=== PATIENT | female | born 1980 | race Caucasian/White ===

== ENCOUNTER 2019-06-01 09:47 | Inpatient (IN) | payer SELFPAY ==
[2019-06-01] MEDS ORDERED: fentaNYL 100 MCG/2 ML INJ IV PRN (12:43)
[2019-06-01] MEDS ORDERED: TERBUTALINE 1 MG/1 ML INJ SUB-Q PRN (12:43)
[2019-06-01] MEDS ORDERED: ePHEDrine SULFATE 50 MG/1 ML INJ IV PRN (12:43)
--- NOTE | 2019-06-01 12:48 | History and Physical Report ---
History of Present Illness Date of examination: 06/01/19 Date of admission: 06/01/2019 Chief complaint: Contractions History of present illness: 38 year old presents to L&D in labor. Patient received care at [facility] and records are a vailable. LMP 08/23/18. EDC 06/06/19 based on 6 week, 1 day US. significant for the following: AMA, depression/anxiety (received Zoloft during ), anemia (supplemented with iron), gestational thrombocytopenia, GBS positive. History of 4 previous vaginal births. labs are as follows: B+, antibody screen negative, rubella immune, hepatitis B surface antigen negative, HIV negative, RPR nonreactive, chlamydia negative, gonorrhea negative, GBS positive, 1 hour sugar test 122, quad screen negative. Patient denies headache, visual disturbance, nausea or vomiting, abdominal or epigastric pain. Past History Past Medical History: other (depression and anxiety, gestational thrombocytopenia, gallstones, anemia requiring blood transfusion) Past Surgical History: cholecystectomy MEDICAL LABORATORY MANAGER History: denies: abnormal PAP smear, chlamydia, gonorrhea, hepatitis B, hepatitis C, herpes, HIV, syphilis, trichomonas Family/Genetic History: hypertension Social history: , lives with family, full code. denies: smoking, alcohol abuse, prescription drug abuse, IV drug use - Obstetrical History Expected Date of Delivery: 06/06/19 Actual Gestation: 39 Week(s) 2 Day(s) : 5 Para: 4 Hx # Term Pregnancies: 3 Number of Pregnancies: 1 Spontaneous Abortions: 0 Induced : 0 Number of Living Children: 4 Medications and Allergies Active Meds: Active Medications Ephedrine Sulfate (Ephedrine Sulfate) 10 mg IV Q2M PRN PRN Reason: Hypotension Fentanyl (Sublimaze) 100 mcg IV Q2H PRN PRN Reason: Labor Pain Oxytocin/Sodium Chloride (Pitocin/Ns 20 Unit/1000ml Drip) 20 units in 1,000 mls @ 125 mls/hr IV DIRECT CONCHITA Lactated Ringer's (Lactated Ringers) 1,000 mls @ 125 mls/hr IV DIRECT CONCHITA Ampicillin Sodium (Ampicillin/Ns 2 Gm/100 Ml) 2 gm in 100 mls @ 100 mls/hr IV ONCE ONE; Protocol Stop: 06/01/19 13:42 Ampicillin Sodium (Ampicillin/Ns 1 Gm/50 Ml) 1 gm in 50 mls @ 100 mls/hr IV Q4HR CONCHITA; Protocol Lidocaine (Xylocaine 2%) 20 ml INFILTRATI ONCE ONE Stop: 06/01/19 12:44 Terbutaline Sulfate (Brethine) 0.25 mg SUB-Q ONCE PRN PRN Reason: Hyperstimulation/Hypertonicity Review of Systems All systems: negative (contractions) - Vital Signs Vital signs: Vital Signs Pulse Pulse Ox 81 100 06/01/19 10:08 06/01/19 10:08 Temp Pulse Resp BP Pulse Ox 98.2 F 83 18 154/90 99 06/01/19 10:13 06/01/19 12:43 06/01/19 10:13 06/01/19 12:39 06/01/19 12:43 - Physical Exam Cardiovascular: Regular rate, Normal S1, Normal S2, No murmurs Lungs: Positive: Clear to auscultation Abdomen: Positive: normal appearance, soft. Negative: distention, tenderness, guarding, rigidity Genitourinary (Female): Positive: normal external genitalia, normal perenium. Negative: perineal/vulvar lesions (no lesions seen on careful exam with bright light upon admission) Vagina: Positive: normal moisture Uterus: Positive: enlarged Anus/Rectum: Positive: normal perianal skin Extremities: Positive: normal. Negative: tenderness, edema - Obstetrical FHR: category 2 Uterine Contraction Monitor Mode: External Cervical Dilatation: 3.5 Cervical Effacement Percentage: 50 station: -2 Uterine Contraction Pattern: Regular Uterine Contraction Intensity: Moderate Results All other labs normal. Assessment and Plan A: at 39 2/7 weeks gestation. Labor. Elevated blood pressure. GBS positive. P: Admit. Preeclamptic labs, serial BPs. Continuous EFM. GBS prophylaxis.
[2019-06-01] MEDS ORDERED: hydrALAZINE 20 MG/1 ML INJ IV PRN (12:49)
[2019-06-01] MEDS ORDERED: AMPICILLIN/NS 2 GM/100 ML 2 GM/100 ML BAG IV ONE (13:00)
[2019-06-01] MEDS ORDERED: OXYTOCIN 20 UNIT/1000ML DRIP 20 UNITS/1,000 ML BAG IV SCH (13:00)
[2019-06-01] MEDS ORDERED: LIDOCAINE (2%) 20 MG/1 ML VIAL 20 ML MDV INFILTRATI ONE (14:00)
[2019-06-01 14:30] LABS: Hematocrit 39.4 % (30.3-42.9); Hemoglobin 12.9 gm/dl (10.1-14.3); Mean Corpuscular HGB Conc 33 % (30-34); Mean Corpuscular Volume 81 fl (79-97); Red Blood Count 4.84 M/mm3 (3.65-5.03); Red Cell Distribution Width 19.3 % (13.2-15.2)
[2019-06-01 14:39] LABS: Uric Acid 5.8 mg/dL (3.5-7.6)
[2019-06-01 14:41] LABS: Alanine Aminotransferase 23 units/L (7-56); Albumin 3.6 g/dL (3.9-5); BUN/Creatinine Ratio 18; Blood Urea Nitrogen 9 mg/dL (7-17); Calcium 9.2 mg/dL (8.4-10.2); Hemolysis Index 0
[2019-06-01] MEDS: LACTATED RINGERS 1,000 ML IV SCH (14:51)
[2019-06-01 15:41] LABS: Platelet Count 77 K/mm3 (140-440)
--- NOTE | 2019-06-01 16:22 | Event Note ---
Date: 06/01/19 Platelet count resulted: 77,000. LFTs elevated. Patient's BPs labile: mostly 130s/70s to 150s/90s. Had one BP in severe range. Recheck a short time later was 154/90. Patient denies headache, chest pain, shortness of breath, visual disturbance, nausea or vomiting, abdominal or epigastric pain. Reflexes brisk. Orders for Pitocin augmentation of labor and mag sulfate have been put in and nurse is starting them now. Consulted with Dr. Alexandra re: patient and informed him of all BPs, lab results, and exam and discussed interventions with him. Disc ussed plan of care with patient and significant other.
[2019-06-01] MEDS ORDERED: MAGNESIUM SULFATE 4 GM/100 ML BAG IV ONE (16:41)
[2019-06-01] MEDS ORDERED: AMPICILLIN/NS 1 GM/50 ML 1 GM/50 ML BAG IV SCH (17:00)
[2019-06-01] MEDS ORDERED: MAGNESIUM SULFATE 40GM/1000ML 40 GM/1,000 ML BAG IV SCH (17:00)
[2019-06-01] MEDS: OXYTOCIN DRIP 30 UNITS/500 ML BAG IV SCH ×2 (17:25→19:46)
--- NOTE | 2019-06-01 20:41 | Event Note ---
Date: 06/01/19 SVE /-1.
[2019-06-01] MEDS ORDERED: LANOLIN/ZINC/DIMETHICONE (LANSINOH) 7 GM TP PRN (21:57)
[2019-06-01] MEDS ORDERED: WITCH HAZEL/ GLYCERIN PAD TP PRN (21:57)
--- NOTE | 2019-06-01 22:07 | Procedure Note ---
OB Delivery Note - Delivery Date of Delivery: 06/01/19 Surgeon: SARAI SALEH Estimated blood loss: other (350 cc) - Vaginal Delivery presentation: vertex Delivery position: OA Intrapartum events: preeclampsia Delivery augmentation: rupture of membranes, pitocin Delivery monitor: external FHT, external uterine Route of delivery: Delivery placenta: spontaneous Delivery cord: nuchal cord, 3 umbilical vessels Episiotomy: none Delivery laceration: none Anesthesia: none Delivery comments: Spontaneous vaginal delivery at 21:30 of liveborn female infant weighing 6 lb. 12.7 ounces over intact perineum with apgars of 8/8. Loose nuchal cord times 1, manually reduced before delivery of shoulders. Baby placed skin to skin with mom immediately after . Baby dried and stimulated. Spontaneous cry and respirations. 3 vessel cord double clamped and cut and baby taken to radiant warmer for further suctioning and evaluation. Spontaneous delivery of intact placenta and membranes with possible small accessory lobe at 21:40. EBL 350 cc. Pitocin to IV fluids after delivery of placenta. Fundus firm and midline. Vaginal sweep negative. No lacerations noted. Sponge count correct. Mother and baby stable.
[2019-06-01] MEDS ORDERED: miSOPROStol 200 MCG TAB ONE (22:20)
[2019-06-01] MEDS ORDERED: miSOPROStol 200 MCG TAB PR ONE (22:45)
[2019-06-01 23:07] LABS: Bilirubin,Urine NEG (Negative); Blood,Urine LG (Negative); Color,Urine Yellow (Yellow); Hyaline Casts,Urine 4 /LPF; Mucus,Urine FEW /HPF; Urobilinogen,Urine < 2.0 mg/dL (<2.0)
[2019-06-01 23:09] LABS: RBC,Urine > 182.0 /HPF (0.0-6.0)
[2019-06-01 23:12] LABS: Protein/Creatinine Ratio,Urine 0.89
--- NOTE | 2019-06-01 23:44 | Ultrasound Report ---
Pelvic ultrasound limited INDICATION: Pelvic pain with recent FINDINGS: The endometrial complex is thickened measuring 4 cm in thickness. The endometrial complex i s heterogeneous but no significant internal Doppler flow is identified. IMPRESSION: Large amount of clot noted within the endometrial canal measuring 4 cm in greatest thickn ess. No significant internal Doppler flow to definitely suggest retained products of conception at th is time. Signer Name: Khai Yoon MD Signed: 06/01/2019 11:40 PM Workstation Name: [id number]
[2019-06-02 00:46] LABS: Amphetamine Screen,Urine PRESUMPTIVE NEGATIVE; Benzodiazepines Screen,Urine PRESUMPTIVE NEGATIVE; Cannabinoid Screen,Urine PRESUMPTIVE NEGATIVE; Cocaine Screen,Urine PRESUMPTIVE NEGATIVE; Methadone Screen,Urine PRESUMPTIVE NEGATIVE; Opiate Screen,Urine PRESUMPTIVE NEGATIVE
[2019-06-02] MEDS: ACETAMINOPHEN 325 MG TAB PO PRN ×2 (05:03→22:52)
[2019-06-02] MEDS ORDERED: MAGNESIUM SULFATE 40GM/1000ML 40 GM/1,000 ML BAG IV SCH (06:00)
[2019-06-02 09:38] LABS: Hematocrit 33.3 % (30.3-42.9); Hemoglobin 10.9 gm/dl (10.1-14.3)
[2019-06-02 11:59] LABS: Alanine Aminotransferase 27 units/L (7-56); Albumin 2.7 g/dL (3.9-5); BUN/Creatinine Ratio 13; Blood Urea Nitrogen 5 mg/dL (7-17); Calcium 6.2 mg/dL (8.4-10.2); Hemolysis Index 3
--- NOTE | 2019-06-02 12:44 | Progress Note ---
Assessment and Plan A: day 1 S/P spontaneous vaginal delivery. Preeclampsia, currently receiving magnesium sulfate. Anemia. P: Consulted with Dr. Keating re: this patient. Will continue magnesium sulfate until 11 pm tonight. Will continue to monitor BPs. Supplement iron. SCDs and Chaney catheter. Subjective - Subjective Date of service: 06/02/19 Principal diagnosis: day 1 S/P . Preeclampsia. Interval history: day 1 S/P ; preeclampsia, currently on magnesium sulfate at 1 gram/hour. Patient denies TRIVEDI, visual disturbance, nausea or vomiting, abdominal or epigastric pain. Patient reports drowsiness. Patient reports lochia is moderate to light. She denies large clots. She has Chaney catheter in place. Patient reports: appetite normal, pain well controlled, flatus, no nauseated [place]: doing well Objective - Vital Signs Latest vital signs: Vital Signs Temp Pulse Resp BP BP Pulse Ox 06/02/19 12:37 97 H 100 06/02/19 12:32 91 H 137/92 100 06/02/19 12:27 91 H 100 06/02/19 12:22 99 H 100 06/02/19 12:17 85 100 06/02/19 12:12 89 100 06/02/19 12:07 87 100 06/02/19 12:02 92 H 134/88 99 06/02/19 11:57 103 H 99 06/02/19 11:52 88 99 06/02/19 11:47 87 99 06/02/19 11:42 87 99 06/02/19 11:37 87 99 06/02/19 11:32 88 125/85 99 06/02/19 11:27 93 H 99 06/02/19 11:22 89 99 06/02/19 11:17 90 100 06/02/19 11:12 91 H 99 06/02/19 11:07 93 H 99 06/02/19 11:02 97 H 130/81 100 06/02/19 10:57 90 100 06/02/19 10:52 88 99 06/02/19 10:47 87 100 06/02/19 10:42 83 99 06/02/19 10:37 95 H 99 06/02/19 10:32 94 H 123/78 100 06/02/19 10:27 88 98 06/02/19 10:22 84 98 06/02/19 10:17 85 98 06/02/19 10:12 85 100 06/02/19 10:07 98 H 100 06/02/19 10:02 84 123/83 98 06/02/19 09:57 84 99 06/02/19 09:52 87 99 06/02/19 09:47 94 H 99 06/02/19 09:42 87 100 06/02/19 09:37 87 99 06/02/19 09:32 97 H 125/77 99 06/02/19 09:27 95 H 100 06/02/19 09:22 99 H 99 06/02/19 09:17 101 H 99 06/02/19 09:12 95 H 99 06/02/19 09:07 94 H 99 06/02/19 09:02 88 119/84 98 06/02/19 08:57 89 99 06/02/19 08:52 89 98 06/02/19 08:47 84 98 06/02/19 08:42 103 H 98 06/02/19 08:37 105 H 99 06/02/19 08:32 91 H 138/89 99 06/02/19 08:27 105 H 99 06/02/19 08:22 103 H 99 06/02/19 08:17 92 H 99 06/02/19 08:12 91 H 99 06/02/19 08:07 98 H 100 06/02/19 08:02 114 H 100 06/02/19 08:01 101 H 135/95 06/02/19 07:57 105 H 100 06/02/19 07:52 113 H 100 06/02/19 07:47 121 H 100 06/02/19 07:43 93 H 139/91 06/02/19 07:42 84 99 06/02/19 07:37 87 99 06/02/19 07:32 94 H 135/97 100 06/02/19 07:27 86 100 06/02/19 07:22 86 100 06/02/19 07:17 105 H 99 06/02/19 07:12 98 H 100 06/02/19 07:07 95 H 100 06/02/19 07:02 93 H 130/89 99 06/02/19 06:57 94 H 98 06/02/19 06:52 88 98 06/02/19 06:47 93 H 99 06/02/19 06:42 91 H 98 06/02/19 06:37 84 99 06/02/19 06:32 91 H 122/80 99 06/02/19 06:27 93 H 99 06/02/19 06:22 94 H 99 06/02/19 06:17 88 99 06/02/19 06:12 91 H 99 06/02/19 06:07 92 H 99 06/02/19 06:03 18 06/02/19 06:02 93 H 124/88 100 06/02/19 05:57 92 H 100 06/02/19 05:52 90 100 06/02/19 05:47 95 H 100 06/02/19 05:42 93 H 100 06/02/19 05:37 96 H 100 06/02/19 05:32 89 138/89 99 06/02/19 05:27 95 H 99 06/02/19 05:22 95 H 99 06/02/19 05:17 94 H 100 06/02/19 05:12 103 H 100 06/02/19 05:07 108 H 99 06/02/19 05:03 18 06/02/19 05:02 97 H 121/84 100 06/02/19 04:57 102 H 99 06/02/19 04:52 99 H 99 06/02/19 04:47 101 H 99 06/02/19 04:42 102 H 99 06/02/19 04:37 104 H 99 06/02/19 04:32 109 H 121/80 100 06/02/19 04:27 103 H 98 06/02/19 04:22 104 H 98 06/02/19 04:17 100 H 99 06/02/19 04:12 101 H 98 06/02/19 04:07 106 H 98 06/02/19 04:02 96 H 127/80 99 06/02/19 03:57 102 H 98 06/02/19 03:52 98 H 98 06/02/19 03:47 100 H 98 06/02/19 03:42 98 H 97 06/02/19 03:37 96 H 97 06/02/19 03:32 93 H 130/88 98 06/02/19 03:27 97 H 98 06/02/19 03:22 96 H 98 06/02/19 03:17 98 H 98 06/02/19 03:12 96 H 98 06/02/19 03:07 93 H 98 06/02/19 03:02 94 H 139/91 98 06/02/19 02:57 96 H 98 06/02/19 02:52 94 H 98 06/02/19 02:47 101 H 99 06/02/19 02:42 98 H 99 06/02/19 02:37 102 H 99 06/02/19 02:32 104 H 120/82 98 06/02/19 02:27 101 H 98 06/02/19 02:22 97 H 99 06/02/19 02:17 99 H 99 06/02/19 02:12 104 H 99 06/02/19 02:07 100 H 99 06/02/19 02:02 107 H 132/88 99 06/02/19 01:57 95 H 98 06/02/19 01:52 94 H 98 06/02/19 01:47 95 H 98 06/02/19 01:42 94 H 98 06/02/19 01:37 94 H 98 06/02/19 01:32 96 H 133/73 98 06/02/19 01:27 94 H 98 06/02/19 01:22 98 H 99 06/02/19 01:17 97 H 99 06/02/19 01:12 96 H 99 06/02/19 01:07 100 H 99 06/02/19 01:02 97 H 145/96 99 06/02/19 00:57 99 H 99 06/02/19 00:52 99 H 100 06/02/19 00:47 107 H 99 06/02/19 00:42 101 H 99 06/02/19 00:37 104 H 99 06/02/19 00:32 99 H 128/90 99 06/02/19 00:27 101 H 99 06/02/19 00:22 100 H 99 06/02/19 00:17 101 H 99 06/02/19 00:12 102 H 99 06/02/19 00:07 99 H 99 06/02/19 00:02 98 H 118/80 99 06/01/19 23:57 99 H 99 06/01/19 23:52 100 H 99 06/01/19 23:47 102 H 99 06/01/19 23:42 101 H 99 06/01/19 23:37 105 H 98 06/01/19 23:32 105 H 123/84 99 06/01/19 23:27 109 H 99 06/01/19 23:22 111 H 100 06/01/19 23:17 109 H 99 06/01/19 23:12 112 H 99 06/01/19 23:07 104 H 100 06/01/19 23:02 106 H 100 06/01/19 22:57 105 H 153/100 99 06/01/19 22:53 110 H 167/101 06/01/19 22:52 114 H 99 06/01/19 22:46 120 H 99 06/01/19 22:41 121 H 99 06/01/19 22:36 97 H 99 06/01/19 22:31 99 H 99 06/01/19 22:26 98 H 99 06/01/19 22:21 108 H 99 06/01/19 22:16 101 H 100 06/01/19 22:11 96 H 99 06/01/19 22:06 96 H 99 06/01/19 22:01 96 H 100 06/01/19 21:56 105 H 100 06/01/19 21:53 110 H 118/83 06/01/19 21:51 116 H 98 06/01/19 21:48 111 H 122/84 06/01/19 21:46 120 H 99 06/01/19 21:41 117 H 99 06/01/19 21:36 118 H 98 06/01/19 21:31 124 H 100 06/01/19 21:29 81 87 06/01/19 21:26 131 H 99 06/01/19 21:21 125 H 98 06/01/19 21:20 130 H 173/107 06/01/19 21:16 128 H 98 06/01/19 21:11 118 H 99 06/01/19 21:06 105 H 99 06/01/19 21:01 100 H 99 06/01/19 20:56 101 H 98 06/01/19 20:51 107 H 98 06/01/19 20:46 92 H 98 06/01/19 20:41 93 H 97 06/01/19 20:36 105 H 98 06/01/19 20:31 115 H 99 06/01/19 20:26 106 H 99 11/29/19 20:21 108 H 98 06/01/19 20:16 126 H 97 06/01/19 20:11 116 H 98 06/01/19 20:06 98 H 100 06/01/19 20:01 95 H 98 06/01/19 19:56 89 97 06/01/19 19:55 95 H 118/78 06/01/19 19:51 89 98 06/01/19 19:46 94 H 99 06/01/19 19:41 111 H 98 06/01/19 19:36 96 H 100 06/01/19 19:31 106 H 99 06/01/19 19:29 98.7 F 95 H 18 170/98 99 06/01/19 19:26 91 H 99 06/01/19 19:22 96 H 157/104 06/01/19 19:21 89 170/98 99 06/01/19 18:55 85 140/83 06/01/19 17:54 71 128/82 06/01/19 16:53 77 121/75 06/01/19 16:24 77 114/75 06/01/19 15:53 61 138/78 06/01/19 15:34 70 140/80 06/01/19 13:48 66 102/62 Intake and Output 06/01/19 06/02/19 06/02/19 23:59 07:59 15:59 Intake Total 4.7 Output Total 350 Balance -345.3 Intake: IV 4.7 PITOCin/NS 30 UNIT/500ML 4.7 30 units In 500 ml @ Per Protocol IV TITR CONCHITA Rx#: [id number] Output: Urine 350 Indwelling Catheter 300 Uretheral (Chaney) 50 Other: Total, Output Amount 100 Estimated Blood Loss 350 - Exam Cardiovascular: Present: Regular rate, Normal S1, Normal S2, No murmurs Lungs: Present: Clear to auscultation Abdomen: Present: normal appearance, soft, normal bowel sounds. Absent: distention, tenderness, guarding, rigidity Uterus: Present: normal, firm, fundal height below umbilicus. Absent: bogginess, tenderness Extremities: Present: normal, edema (mild pedal edema bilaterally). Absent: te nderness - Labs Labs: Abnormal lab results 06/01/19 06/01/19 06/01/19 Range/Units 13:43 13:43 13:43 MCH 27 L (28-32) pg RDW 19.3 H (13.2-15.2) % Plt Count 77 L (140-440) K/mm3 Sodium 136 L (137-145) mmol/L Carbon Dioxide 17 L (22-30) mmol/L BUN (7-17) mg/dL Creatinine 0.5 L (0.7-1.2) mg/dL Glucose (65-100) mg/dL Calcium (8.4-10.2) mg/dL Magnesium (1.7-2.3) mg/dL Alkaline Phosphatase 265 H (35-129) units/L Lactate Dehydrogenase 185 H (91-180) units/L Total Protein (6.3-8.2) g/dL Albumin 3.6 L (3.9-5) g/dL Urine WBC (Auto) (0.0-6.0) /HPF Urine Creatinine (0.1-20.0) mg/dL Urine Total Protein (5-11.8) mg/dL 06/01/19 06/01/19 06/01/19 Range/Units 22:27 22:45 22:45 MCH (28-32) pg RDW (13.2-15.2) % Plt Count (140-440) K/mm3 Sodium (137-145) mmol/L Carbon Dioxide (22-30) mmol/L BUN (7-17) mg/dL Creatinine (0.7-1.2) mg/dL Glucose (65-100) mg/dL Calcium (8.4-10.2) mg/dL Magnesium 5.70 H (1.7-2.3) mg/dL Alkaline Phosphatase (35-129) units/L Lactate Dehydrogenase (91-180) units/L Total Protein (6.3-8.2) g/dL Albumin (3.9-5) g/dL Urine WBC (Auto) 44.0 H (0.0-6.0) /HPF Urine Creatinine 46.0 H (0.1-20.0) mg/dL Urine Total Protein 41 H (5-11.8) mg/dL 06/02/19 06/02/19 06/02/19 Range/Units 05:09 11:11 11:11 MCH (28-32) pg RDW (13.2-15.2) % Plt Count 75 L (140-440) K/mm3 Sodium (137-145) mmol/L Carbon Dioxide (22-30) mmol/L BUN (7-17) mg/dL Creatinine (0.7-1.2) mg/dL Glucose (65-100) mg/dL Calcium (8.4-10.2) mg/dL Magnesium 6.90 H 5.70 H (1.7-2.3) mg/dL Alkaline Phosphatase (35-129) units/L Lactate Dehydrogenase (91-180) units/L Total Protein (6.3-8.2) g/dL Albumin (3.9-5) g/dL Urine WBC (Auto) (0.0-6.0) /HPF Urine Creatinine (0.1-20.0) mg/dL Urine Total Protein (5-11.8) mg/dL 06/02/19 Range/Units 11:11 MCH (28-32) pg RDW (13.2-15.2) % Plt Count (140-440) K/mm3 Sodium 132 L (137-145) mmol/L Carbon Dioxide 17 L (22-30) mmol/L BUN 5 L (7-17) mg/dL Creatinine 0.4 L (0.7-1.2) mg/dL Glucose 116 H (65-100) mg/dL Calcium 6.2 L D (8.4-10.2) mg/dL Magnesium (1.7-2.3) mg/dL Alkaline Phosphatase 190 H (35-129) units/L Lactate Dehydrogenase (91-180) units/L Total Protein 5.6 L (6.3-8.2) g/dL Albumin 2.7 L (3.9-5) g/dL Urine WBC (Auto) (0.0-6.0) /HPF Urine Creatinine (0.1-20.0) mg/dL Urine Total Protein (5-11.8) mg/dL
[2019-06-03] MEDS: LACTATED RINGERS 1,000 ML IV SCH (01:50)
[2019-06-03] MEDS: ACETAMINOPHEN 325 MG TAB PO PRN ×2 (12:19→22:43)
[2019-06-03] MEDS: FERROUS SULFATE 325 MG TAB PO SCH (12:19)
--- NOTE | 2019-06-03 17:24 | Progress Note ---
Assessment and Plan A: day 2 S/P . Preeclampsia. Thrombocytopenia. Anemia secondary to and blood loss. P: Supplement with oral iron. Continue to monitor BPs. Subjective - Subjective Date of service: 06/03/19 Principal diagnosis: day 2 S/P . Preeclampsia. Interval history: day 2 S/P ; preeclampsia. Patient denies TRIVEDI, visual disturbance, dizziness, nausea or vomiting, abdominal or epigastric pain. Patient denies cough, shortness of breath, chest pain, or leg pain. Patient reports lochia is moderate to light. She denies large clots. She is voiding without difficulty, passing gas, tolerating a regular diet, and ambulating well. Patient reports: appetite normal, voiding normally, pain well controlled, flatus, bowel movement, ambulating normally, no dizzy ambulation, no nauseated [place]: doing well Objective - Vital Signs Latest vital signs: Vital Signs Temp Pulse Resp BP Pulse Ox 06/03/19 15:20 98.8 F 77 20 118/74 98 06/03/19 07:45 98.4 F 67 16 114/66 97 06/03/19 01:25 98.7 F 69 18 107/73 98 06/02/19 22:24 99.1 F 78 142/80 94 06/02/19 21:49 80 100 06/02/19 21:44 77 98 06/02/19 21:39 80 99 06/02/19 21:33 90 100 06/02/19 21:29 81 100 06/02/19 21:24 81 99 06/02/19 21:19 77 99 06/02/19 21:16 78 137/92 06/02/19 21:14 78 99 06/02/19 21:09 86 100 06/02/19 21:04 77 99 06/02/19 20:59 89 99 06/02/19 20:53 92 H 99 06/02/19 20:49 77 99 06/02/19 20:44 77 99 06/02/19 20:39 78 98 06/02/19 20:34 79 99 06/02/19 20:29 79 100 06/02/19 20:24 80 99 06/02/19 20:19 81 100 06/02/19 20:16 81 130/92 06/02/19 20:14 108 H 99 06/02/19 20:09 78 99 06/02/19 20:04 84 100 06/02/19 19:59 81 100 06/02/19 19:54 106 H 100 06/02/19 19:49 78 99 06/02/19 19:43 79 99 06/02/19 19:39 80 99 06/02/19 19:34 80 99 06/02/19 19:29 82 99 06/02/19 19:24 92 H 98 06/02/19 19:19 82 97 06/02/19 19:16 83 124/84 06/02/19 19:14 87 99 06/02/19 19:09 82 98 06/02/19 19:04 84 99 06/02/19 18:59 82 99 06/02/19 18:54 81 100 06/02/19 18:48 79 99 06/02/19 18:44 87 99 06/02/19 18:39 85 100 06/02/19 18:34 84 99 06/02/19 18:28 88 100 06/02/19 18:24 115 H 100 06/02/19 18:19 81 100 06/02/19 18:16 89 136/87 06/02/19 18:14 89 99 06/02/19 18:09 100 H 99 06/02/19 18:04 84 99 06/02/19 17:58 83 99 06/02/19 17:53 89 99 06/02/19 17:49 85 99 06/02/19 17:44 98 H 99 06/02/19 17:39 89 99 06/02/19 17:33 89 99 06/02/19 17:28 87 98 06/02/19 17:24 83 99 Intake and Output 06/03/19 06/03/19 06/03/19 07:59 15:59 23:59 Intake Total 480 Output Total 1200 650 Balance -1200 -170 Intake: Oral 480 Output: Urine 1200 650 Indwelling Catheter 900 Void 300 650 Other: Total, Intake Amount 240 Total, Output Amount 300 400 # Voids Indwelling Catheter 1 Void 1 - Exam Cardiovascular: Present: Regular rate, Normal S1, Normal S2, No murmurs Lungs: Present: Clear to auscultation Abdomen: Present: normal appearance, soft, normal bowel sounds. Absent: distention, tenderness, guarding, rigidity Uterus: Present: normal, firm, fundal height below umbilicus. Absent: bogginess, tenderness Extremities: Present: normal. Absent: tenderness, edema - Labs Labs: Abnormal lab results 06/02/19 Range/Units 17:36 Magnesium 4.80 H (1.7-2.3) mg/dL
[2019-06-04] MEDS: FERROUS SULFATE 325 MG TAB PO SCH (08:42)
--- NOTE | 2019-06-04 11:07 | Progress Note ---
Assessment and Plan - Patient Problems (1) Status post normal vaginal delivery Current Visit: Yes Status: Acute Plan to address problem: PPD 3 - stable Discharge to home today Follow up at [facility] as needed or in 1 week for blood pre ssure check (2) Thrombocytopenia Current Visit: Yes Status: Acute Plan to address problem: Asymptomatic (3) Pre-eclampsia Current Visit: Yes Status: Acute Qualifiers: Trimester: third trimester Qualified Code(s): O14.93 - Unspecified pre- eclampsia, third trimester Plan to address problem: Asymptomatic Completed MgSO4 therapy Not currently on any antihypertensive BPs stable (132/77, 131/74, 120/68, 123/85) Subjective - Subjective Date of service: 06/04/19 Principal diagnosis: PPD #3; s/p Interval history: see H&P, Event Notes, OB Delivery 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 Progress Notes Patient reports: appetite normal, voiding normally, pain well controlled, ambulating normally, other (denies headache, visual disturbances or RUQ pain), no dizzy ambulation [place]: doing well, other (breast and bottle feeding) Objective - Vital Signs Latest vital signs: Vital Signs Temp Pulse Resp BP BP Pulse Ox 06/04/19 08:22 98.4 F 83 18 123/85 98 06/04/19 04:00 98.7 F 71 16 120/68 06/03/19 23:30 98.7 F 69 16 131/74 06/03/19 20:00 98.7 F 76 16 132/77 06/03/19 15:20 98.8 F 77 20 118/74 98 Intake and Output 06/03/19 06/04/19 06/04/19 23:59 07:59 15:59 Intake Total 200 Balance 200 Intake: Oral 200 Other: Total, Intake Amount 200 # Voids Void 1 1 - Exam Cardiovascular: Present: Regular rate Lungs: Present: Clear to auscultation Abdomen: Present: normal appearance, soft Vulva: both: normal Uterus: Present: normal, firm, fundal height below umbilicus Extremities: Present: normal Comments: scant lochia
--- NOTE | 2019-06-04 11:16 | Discharge Summary ---
Providers - Providers Date of Admission: 06/01/19 12:54 Date of discharge: 06/04/19 Attending physician: TAMMY MEJIA MD Primary care physician: TAMMY MEJIA MD Hospitalization Reason for admission: active labor, IUP at term Delivery: Episiotomy: none Laceration: none Other procedures: none complications: other (pre-eclampsia) Discharge diagnosis: IUP at term delivered [employer] baby: female Hospital course: Complicated by pre-eclampsia. s/p magnesium sulfate therapy Condition at discharge: Stable Disposition: DC-01 TO HOME OR SELFCARE - Discharge Diagnoses (1) Status post normal vaginal delivery Status: Acute (2) Thrombocytopenia Status: Acute Comment: Asymptomatic Platelet count 75 (3) Pre-eclampsia Status: Acute Qualifiers: Trimester: third trimester Qualified Code(s): O14.93 - Unspecified pre- eclampsia, third trimester Comment: Asymptomatic - BPs stable s/p Magnesium sulfate therapy Plan - Provider Discharge Summary Activity: routine, no sex for 6 weeks, no heavy lifting 4 weeks, no strenuous exercise Diet: routine Instructions: routine Additional instructions: [] Smoking cessation referral if applicable(refer to patient education folder for contact #) [] Refer to [employer] Booklet Call your doctor immediately for: * Fever > 100.5 * Heavy vaginal bleeding ( >1 pad per hour) * Severe persistent headache * Shortness of breath * Reddened, hot, painful area to leg or breast * Drainage or odor from incision. * Keep incision clean and dry at all times and follow doctor's instructions regarding bathing/showering - Follow up plan Follow up: TAMMY MEJIA MD [Primary Care Provider] - 7 Days (Follow up at [facility] as needed or in 1 week for blood pressure check)
[2019-06-04 17:03] VITALS: BP 135/86
== END 2019-06-04 16:25 | disposition home or self-care (01) | DRG 806 ==
LOC: TRG 09:47 → LD 12:54 → OB 06-02 22:43
PROVIDERS: ADMIT Obstetrics & Gynecology; ATTEND Obstetrics & Gynecology
PROC: 10E0XZZ Delivery of Products of Conception, External Approach (ICD-10-PCS; principal; 2019-06-01)
DX: O14.94 Unspecified pre-eclampsia, complicating childbirth (principal); D62 Acute posthemorrhagic anemia; Z37.0 Single live birth; O99.824 Streptococcus B carrier state complicating childbirth; Z3A.39 39 weeks gestation of pregnancy; F41.9 Anxiety disorder, unspecified; F32.9 Major depressive disorder, single episode, unspecified; Z90.49 Acquired absence of other specified parts of digestive tract; O76 Abnormality in fetal heart rate and rhythm complicating labor and delivery; D69.6 Thrombocytopenia, unspecified; O72.3 Postpartum coagulation defects; O90.81 Anemia of the puerperium; O69.81X0 Labor and delivery complicated by cord around neck, without compression, not applicable or unspecified
CPT/HCPCS: 36415; 76857; 80053; 80307; 81001; 82570; 83615; 83735; 84156; 84550; 85014; 85018; 85027; 85049; 86850; 86900; 86901; 87086; 88307; G0378; A6250; J0290; J2590; J3010; J3475; J7120